=== PATIENT | female | born 1945 | race Caucasian/White ===

== ENCOUNTER 2017-04-20 14:13 | Outpatient (CLI) | payer MEDICARE, OTHER ==
[2017-04-20 16:33] LABS: #Eosinphils 0.2 thou/uL (0.0-0.7); #Lymphocytes 1.6 thou/uL (1.20-3.40); #Monocytes 0.6 thou/uL (0.11-0.59); #Neutrophils 4.7 thou/uL (1.40-6.50); %Basophils 0.2 % (0.0-1.0); %Eosinophils 3.3 % (0.0-10.0); %Lymphocytes 22.4 % (21.0-51.0); %Monocytes 8.7 % (0.0-10.0); Hematocrit 34.7 % (36.0-47.0); Mean Platelet Volume 7.4 fL (7.4-10.4); White Blood Cell (WBC) Count 7.2 thou/uL (4.8-10.8)
[2017-04-20 16:58] LABS: ALT (SGPT) 17 U/L (8-55); AST (SGOT) 21 U/L (5-34); Alkaline Phosphatase 60 U/L (40-150); Anion Gap 14 mmol/L (10-20); BUN (Urea Nitrogen) 23 mg/dL (9.8-20.1); Bilirubin, Total 0.3 mg/dL (0.2-1.2); Calc. Creatinine Clearance 0 mL/min (70-130); Calcium 9.7 mg/dL (7.8-10.44); Carbon Dioxide 27 mmol/L (23-31); Chloride 99 mmol/L (98-107); Estimated GFR-MDRD 48; Globulin 3.4 g/dL (2.4-3.5); Protein, Total 7.8 g/dL (6.0-8.3)
== END 2017-04-20 14:14 | disposition home or self-care (01) ==
LOC: LABBT 14:13
PROVIDERS: ATTEND Surgery
DX: Z01.818 Encounter for other preprocedural examination (principal); C51.9 Malignant neoplasm of vulva, unspecified
CPT/HCPCS: 80053; 85025; 93005; 93010

== ENCOUNTER 2017-04-21 05:43 | Day surgery (SDC) | payer MEDICARE, OTHER ==
[2017-04-20 14:56] VITALS: BMI 26.4
[2017-04-21] MEDS ORDERED: Lidocaine 2% w/Epinephrine 1:200K 20 ML VIAL ONE (06:42)
[2017-04-21] MEDS ORDERED: Bupivacaine 0.25% HCL 30 ML VIAL ONE (06:43)
[2017-04-21] MEDS ORDERED: Bupivacaine PF 0.5% 30 ML VIAL ONE (06:43)
[2017-04-21] MEDS ORDERED: Fentanyl 100 MCG/2 ML VIAL ONE (07:22)
[2017-04-21] MEDS ORDERED: Midazolam HCl 2 mg/2 ml Vial ONE (07:22)
[2017-04-21] MEDS ORDERED: CEFAZOLIN/Water 2 GM/20 ML SYRINGE ONE (07:22)
[2017-04-21] MEDS ORDERED: Bicitra 30 ML UDCUP ONE (07:22)
[2017-04-21] MEDS ORDERED: Dexamethasone 20 MG/5 ML VIAL ONE (07:41)
[2017-04-21] MEDS ORDERED: Lidocaine 1% PF 5 ML VIAL ONE (07:41)
[2017-04-21] MEDS ORDERED: Glycopyrrolate 0.2 MG/ML 5 ML SYRINGE ONE (07:41)
[2017-04-21] MEDS ORDERED: ePHEDrine/0.9% NaCl/PF SYRINGE 50 mg/10 ml ONE (07:41)
[2017-04-21] MEDS ORDERED: Propofol 200 MG/20 ML VIAL ONE (07:41)
[2017-04-21] MEDS ORDERED: Ondansetron HCl/PF 4 MG/2 ML Vial ONE (07:41)
[2017-04-21] MEDS ORDERED: Morphine 2 MG/ML SYRINGE ONE (09:03)
--- NOTE | 2017-04-21 09:03 | OP ---
PREOPERATIVE DIAGNOSIS: Vulvar cancer. SURGEON: Toby Kelly M.D. PROCEDURE PERFORMED: MediPort placement. INDICATIONS: A 71-year-old female who recently was diagnosed with vulvar cancer, will require chemo therapy and needed MediPort for that. FINDINGS: Placement was in the left subclavian vein with good backflow of venous blood. DESCRIPTION OF THE PROCEDURE: After informed consent was obtained, patient was taken to the operati ng room and given general mask anesthesia, placed in the supine position. Her chest and neck were p repped and draped in the usual fashion. Local anesthesia infiltrated subcutaneously and deep with 0 .5% Marcaine. The patient was then placed in Trendelenburg position. An introducer needle was inse rted, left subclavian with good backflow of venous blood. J-wire inserted easily. Fluoroscopy was then performed to document placement in the superior vena cava. The skin and subcutaneous anestheti zed with 0.5% Marcaine. A transverse chest wall incision was performed. Subcu divided sharply. A pocket was created sharply with electrocautery on the pectoralis fascia. Then utilizing the tunneli ng device, the catheter was placed in the subcutaneous tissue between the two incisions. The cathet er was then secured to the MediPort and the system was flushed with heparinized saline. The MediPor t was secured in its pocket with interrupted 2-0 Prolene suture. The catheter cut to size. The pee l-away introducer inserted over the wire. The wire removed. The catheter inserted through the peel -away introducer and the peel-away introducer removed. Fluoroscopy again performed showed good plac ement in superior vena cava. The subcu was closed with interrupted 3-0 Vicryl. The system was acce ssed with the Elliott needle, aspirated. Good backflow of venous blood, flushed with heparinized sali ne. The skin closed with a running subcuticular 4-0 Rapide. Dermabond applied. The patient tolera anjel the procedure well and transferred to recovery in good condition. Sponge and needle count verif ied correct x2.
[2017-04-21] MEDS ORDERED: HYDROmorphone 2 MG/ML VIAL SLOW IVP PRN (09:28)
[2017-04-21] MEDS ORDERED: Morphine Sulfate 2 MG/ML SYRINGE SLOW IVP PRN (09:28)
[2017-04-21] MEDS ORDERED: Non-Formulary Medication 1 EACH PO PRN (09:28)
--- NOTE | 2017-04-21 09:47 | RAD ---
PORTABLE CHEST ONE VIEW: Date: 04-21-17 Time: 8:41 a.m. History: Mediport placement. FINDINGS/IMPRESSION: The heart size is normal. There is a left subclavian port-a-cath tip in the direction of the SVC. No pneumothorax is identified. There is subsegmental atelectasis with mild infiltrate at the left lung base. POS: [facility]
== END 2017-04-21 10:38 | disposition home or self-care (01) ==
LOC: SDC 05:43
PROVIDERS: ATTEND Surgery
PROC: 05H633Z Insertion of Infusion Device into Left Subclavian Vein, Percutaneous Approach (ICD-10-PCS; principal; 2017-04-21)
DX: C51.9 Malignant neoplasm of vulva, unspecified (principal); E11.9 Type 2 diabetes mellitus without complications; Z88.1 Allergy status to other antibiotic agents; Z88.8 Allergy status to other drugs, medicaments and biological substances; Z79.84 Long term (current) use of oral hypoglycemic drugs; Z79.899 Other long term (current) drug therapy; Z90.10 Acquired absence of unspecified breast and nipple; Z90.710 Acquired absence of both cervix and uterus; Z90.49 Acquired absence of other specified parts of digestive tract; Z98.890 Other specified postprocedural states; Z98.891 History of uterine scar from previous surgery; Z80.9 Family history of malignant neoplasm, unspecified
CPT/HCPCS: 36561; 71010; 96374; C1788; J1100; J1642; J2001; J2250; J2270; J2405; J2704; J3010; S0020

== ENCOUNTER 2017-06-06 13:33 | Outpatient (CLI) | payer MEDICARE, OTHER ==
[2017-06-06 14:18] LABS: #Eosinphils 0.3 thou/uL (0.0-0.7); #Lymphocytes 0.9 thou/uL (1.20-3.40); #Monocytes 0.4 thou/uL (0.11-0.59); #Neutrophils 3.2 thou/uL (1.40-6.50); %Basophils 0.4 % (0.0-1.0); %Eosinophils 5.9 % (0.0-10.0); %Lymphocytes 17.9 % (21.0-51.0); %Monocytes 8.9 % (0.0-10.0); Hematocrit 33.3 % (36.0-47.0); Red Blood Cell (RBC) Count 3.79 mill/uL (4.20-5.40); White Blood Cell (WBC) Count 4.8 thou/uL (4.8-10.8)
[2017-06-06 14:38] LABS: ALT (SGPT) 20 U/L (8-55); AST (SGOT) 23 U/L (5-34); Alkaline Phosphatase 62 U/L (40-150); Anion Gap 14 mmol/L (10-20); BUN (Urea Nitrogen) 25 mg/dL (9.8-20.1); Bilirubin, Total 0.3 mg/dL (0.2-1.2); Calc. Creatinine Clearance 0 mL/min (70-130); Calcium 9.9 mg/dL (7.8-10.44); Carbon Dioxide 26 mmol/L (23-31); Chloride 102 mmol/L (98-107); Estimated GFR-MDRD 43; Globulin 3.2 g/dL (2.4-3.5); Protein, Total 7.6 g/dL (6.0-8.3)
== END 2017-06-06 13:34 | disposition home or self-care (01) ==
LOC: LABBT 13:33
PROVIDERS: ATTEND Surgery
DX: Z01.818 Encounter for other preprocedural examination (principal); C51.9 Malignant neoplasm of vulva, unspecified; Z88.1 Allergy status to other antibiotic agents; Z88.8 Allergy status to other drugs, medicaments and biological substances
CPT/HCPCS: 80053; 85025; 93005; 93010

== ENCOUNTER 2017-06-13 06:42 | Day surgery (SDC) | payer MEDICARE, OTHER ==
[2017-06-06 14:03] VITALS: BMI 26.6
--- NOTE | 2017-06-13 07:13 | HP ---
CHIEF COMPLAINT: Completed chemo. HISTORY OF PRESENT ILLNESS: The patient is a 71-year-old female who had a MediPort placed to treat v ulvar cancer. She has completed chemotherapy. She is here for removal of MediPort. PAST MEDICAL HISTORY: Diabetes, hypertension, breast cancer, vulvar cancer. MEDICATIONS: Metformin, lovastatin, Toprol-XL, hydrochlorothiazide, omeprazole, cetirizine, vitamin D, gabapentin, hydrocodone. PAST SURGICAL HISTORY: section x3, hysterectomy, cholecystectomy, cataract surgery, skin ca ncer surgery, bilateral mastectomy, vulvar surgery. ALLERGIES: She has allergies to LISINOPRIL, BAYCOL and CIPROFLOXICIN. FAMILY HISTORY: Both parents are . SOCIAL HISTORY: No tobacco, no alcohol. PHYSICAL EXAMINATION: VITAL SIGNS: Height 5 foot 6, weight 165, body mass index 26.6, blood pressure 125/93, pulse 99. GENERAL: Well-developed, well-nourished female in no apparent distress. HEENT: Unremarkable. LUNGS: Clear. HEART: Regular rate and rhythm. She has a MediPort in the left upper chest. ABDOMEN: Soft, nontender, good bowel sounds, no palpable masses or hernias. EXTREMITIES: Good pulses. No pedal edema. ASSESSMENT: Completed chemo. PLAN: Removal of MediPort. CONSENT: I discussed the planned procedure as well as risk of bleeding, infection. She understands and gives informed consent.
[2017-06-13] MEDS ORDERED: CEFAZOLIN/Water 2 GM/20 ML SYRINGE ONE (07:53)
[2017-06-13] MEDS ORDERED: Bupivacaine PF 0.5% 30 ML VIAL ONE (08:42)
[2017-06-13] MEDS ORDERED: Lidocaine 2% w/Epinephrine 1:200K 20 ML VIAL ONE (08:42)
[2017-06-13] MEDS ORDERED: Meperidine HCl/PF 25 MG/ML VIAL ONE (09:00)
--- NOTE | 2017-06-13 09:44 | OP ---
PREOPERATIVE DIAGNOSIS: Complete chemotherapy. SURGEON: Toby Kelly M.D. PROCEDURE PERFORMED: Removal of MediPort. INDICATIONS: A 71-year-old female who has completed chemotherapy for vulvar cancer here and for Medi Port removal. FINDINGS: Intact system. DESCRIPTION OF PROCEDURE: After informed consent was obtained, the patient was taken to the operatin g room and given total intravenous anesthesia, placed in the supine position. Chest was prepped and draped in the usual fashion. Local anesthesia infiltrated subcutaneously and deep. A transverse inc ision was performed through the old scar. Subcutaneous divided sharply. The sutures were removed. The MediPort removed as well as the catheter intact. Hemostasis achieved with electrocautery. Subcu taneous reapproximated with interrupted 3-0 Vicryl. Skin closed with a running subcuticular 4-0 Rapi carson. Dermabond applied. The patient tolerated the procedure well and transferred to recovery in good condition. Sponge and needle count verified correct x2.
[2017-06-13] MEDS ORDERED: Ondansetron HCl/PF 4 MG/2 ML Vial ONE (10:47)
[2017-06-13] MEDS ORDERED: Propofol 200 MG/20 ML VIAL ONE (10:47)
== END 2017-06-13 10:49 | disposition home or self-care (01) ==
LOC: SDC 06:42
PROVIDERS: ATTEND Surgery
PROC: 0JPT3WZ Removal of Totally Implantable Vascular Access Device from Trunk Subcutaneous Tissue and Fascia, Percutaneous Approach (ICD-10-PCS; principal; 2017-06-13)
DX: C51.9 Malignant neoplasm of vulva, unspecified (principal); Z90.49 Acquired absence of other specified parts of digestive tract; I10 Essential (primary) hypertension; E11.9 Type 2 diabetes mellitus without complications; Z88.8 Allergy status to other drugs, medicaments and biological substances; Z88.1 Allergy status to other antibiotic agents; Z79.84 Long term (current) use of oral hypoglycemic drugs; Z79.899 Other long term (current) drug therapy; Z90.13 Acquired absence of bilateral breasts and nipples; Z90.710 Acquired absence of both cervix and uterus; Z98.890 Other specified postprocedural states
CPT/HCPCS: J1642; J2175; J2405; J2704; S0020

== ENCOUNTER 2017-10-13 10:13 | Outpatient (CLI) | payer MEDICARE, OTHER ==
--- NOTE | 2017-10-13 15:01 | PET ---
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 COMPARISON: None. TECHNIQUE: IV injection F-18 Fluorodeoxyglucose (FDG) dose: 7.1 mCi PET and attenuation-correction CT performed from skull base to proximal thighs. FINDINGS: SUV (standard uptake value) numbers given are maximum SUV's: These are QCLR values. There is a single right inguinal lymph node with strong FDG avidity, SUV 13.0. At midline, at the junction between the anterior aspect of the anus and the posterior aspect of the p erineum, there is a focus of FDG uptake with SUV of 8.3. It is uncertain whether this represents cont iguous physiologic uptake from the contents of the colon and rectum, or whether this represents the p rimary malignancy stated in the history. There are no other regions of abnormal FDG avidity. This includes absence of FDG-avid iliac chain lym ph nodes. There is no FDG avidity in the abdomen, chest, or neck. IMPRESSION: 1. Evidence for solitary right inguinal metastatic lymph node. 2. Questionable finding at posterior perineum. See above comments. NAVDEEP Low POS: [facility]
== END 2017-10-13 10:14 | disposition home or self-care (01) ==
LOC: PET 10:13
PROVIDERS: ATTEND Radiology Radiation Oncology
DX: C51.2 Malignant neoplasm of clitoris (principal); C77.4 Secondary and unspecified malignant neoplasm of inguinal and lower limb lymph nodes
CPT/HCPCS: 78815; A9552

== ENCOUNTER 2018-03-30 08:22 | Outpatient (CLI) | payer MEDICARE, OTHER ==
--- NOTE | 2018-03-30 15:49 | PET ---
NUCLEAR MEDICINE FDG PET CT: (Positron Emission Tomography) DATE: 03/30/18 HISTORY: 72-year-old female with cancer of the vulva, with recurrence in the right inguinal region. C77.4 and C56.2. Status post external beam radiation therapy. Restaging. COMPARISON: 10/13/17 PET. TECHNIQUE: IV injection F-18 Fluorodeoxyglucose (FDG) dose: 10.8 mCi PET and attenuation-correction CT performed from skull base to proximal thighs. FINDINGS: SUV (standard uptake value) numbers given are maximum SUV's: Again noted is the small area of increased activity in the region of the perineum. This appears simil ar to that of the prior study. Because there is no mention of residual disease in this area clinicall y by the provided history, it is assumed that this represents intraluminal contents of the rectum ext ending into the anus, rather than a malignancy. The previously demonstrated hypermetabolic right inguinal lymph node is no longer present. There is f at stranding in that area representing either edema or scar tissue. There are currently no hypermetabolic lymph nodes in the pelvis, abdomen, chest, or neck. There are n o foci of abnormal FDG avidity within the thoracic cavity or pelvic cavity, or involving the skeleton . There is diffusely greater heterogeneous uptake throughout the entire liver now compared to the previ ous study. This is unlikely to be due to metastatic disease. 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 Sigmoid and descending colonic diverticulosis without acute diverticulitis. Cholecystectomy clips. No pleural effusion, large pulmonary mass, or consolida tion, and no pneumothorax. IMPRESSION: 1. Status post surgical resection of the malignant, metastatic right inguinal lymph node. 2. Currently no convincing evidence of malignant residual or metastatic disease. 3. Status post hysterectomy and cholecystectomy. NAVDEEP Low POS: [facility]
== END 2018-03-30 08:23 | disposition home or self-care (01) ==
LOC: PET 08:22
PROVIDERS: ATTEND Radiology Radiation Oncology
DX: Z08 Encounter for follow-up examination after completed treatment for malignant neoplasm (principal); Z85.44 Personal history of malignant neoplasm of other female genital organs; Z85.79 Personal history of other malignant neoplasms of lymphoid, hematopoietic and related tissues; Z92.3 Personal history of irradiation; Z90.710 Acquired absence of both cervix and uterus; Z90.49 Acquired absence of other specified parts of digestive tract; Z98.890 Other specified postprocedural states
CPT/HCPCS: 78815; A9552

== ENCOUNTER 2018-10-30 13:03 | Outpatient (CLI) | payer MEDICARE ==
--- NOTE | 2018-10-30 15:37 | CT ---
CT abdomen and pelvis noncontrast HISTORY: Abdominal pain. COMPARISON: 03/30/2018. FINDINGS: Minimal atelectasis at the lung bases. Each renal collecting system, ureter, and urinary bl adder are decompressed without stone evident. Lack of IV contrast limits evaluation for other abnormalities. Oral contrast was administered. No sarthak dence of bowel obstruction. Gallbladder surgically absent. Prominent circumferential wall thickening involving the cecum, most pronounced anteriorly. Apparent wall thickening measures up to 1 .8 cm. Abnormality extends over a length of 8.8 cm. Of note, this masslike appearance was not present on the PET scan from 03/30/2018. Diverticula arise from the distal colon without adjacent infl ammation. Degenerative changes lumbar spine. IMPRESSION: No CT evidence of urinary tract obstruction or calcification. Abnormal appearance of the cecum, with prominent mass like wall thickening. The appearance very much suggests neoplasm. The unusual part is that the abnormality was not present on scan from 03/30/2018. The rapid appearance is somewhat confusing. Please consider colonoscopy and potential biopsy. Mild diverticulosis. No evidence of diverticulitis.
[2018-10-30 15:49] LABS: #Eosinphils 0.1 thou/uL (0.0-0.7); #Lymphocytes 1.2 thou/uL (1.20-3.40); #Monocytes 0.6 thou/uL (0.11-0.59); #Neutrophils 5.1 thou/uL (1.40-6.50); %Basophils 0.2 % (0.0-1.0); %Eosinophils 1.7 % (0.0-10.0); %Lymphocytes 16.9 % (21.0-51.0); %Monocytes 8.1 % (0.0-10.0); %Neutrophils 73.1 % (42.0-75.0); Hemoglobin 12.8 g/dL (12.0-16.0); Mean Corpuscular HGB CONC 34.9 g/dL (32.0-36.0); Mean Corpuscular Hemoglobin 28.9 pg (27.0-31.0); Platelet Count 239 thou/uL (130-400); RBC Distribution Width 13.4 % (11.5-14.5); Red Blood Cell (RBC) Count 4.43 mill/uL (4.20-5.40)
[2018-10-30 16:12] LABS: ALT (SGPT) 30 U/L (8-55); AST (SGOT) 20 U/L (5-34); Albumin 4.6 g/dL (3.4-4.8); Alkaline Phosphatase 83 U/L (40-150); Anion Gap 18 mmol/L (10-20); BUN (Urea Nitrogen) 19 mg/dL (9.8-20.1); Bilirubin, Total 0.5 mg/dL (0.2-1.2); Calc. Creatinine Clearance 0 mL/min (70-130); Calcium 9.1 mg/dL (7.8-10.44); Carbon Dioxide 22 mmol/L (23-31); Chloride 92 mmol/L (98-107); Estimated GFR-MDRD 55; Globulin 3.1 g/dL (2.4-3.5); Glucose 106 mg/dL (83-110); Lipase 17 U/L (8-78); Potassium 3.5 mmol/L (3.5-5.1); Protein, Total 7.7 g/dL (6.0-8.3); Sodium 128 mmol/L (136-145)
[2018-10-30] MEDS ORDERED: Iopamidol 370 76% 50 ML VIAL FS ONE (17:09)
== END 2018-10-30 13:04 | disposition home or self-care (01) ==
LOC: CT 13:03
PROVIDERS: ATTEND Internal Medicine Geriatric Medicine
DX: R10.10 Upper abdominal pain, unspecified (principal); I10 Essential (primary) hypertension; E11.65 Type 2 diabetes mellitus with hyperglycemia; R19.7 Diarrhea, unspecified; K29.00 Acute gastritis without bleeding; K57.30 Diverticulosis of large intestine without perforation or abscess without bleeding
CPT/HCPCS: 74176; 80053; 80061; 82150; 83036; 83690; 85025; Q9967

== ENCOUNTER 2019-03-19 16:23 | Emergency (ER) | payer MEDICARE ==
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
== END 2019-03-19 18:45 | disposition home or self-care (01) ==
LOC: ERS 16:23
DX: S29.012A Strain of muscle and tendon of back wall of thorax, initial encounter (principal); S20.212A Contusion of left front wall of thorax, initial encounter; E11.9 Type 2 diabetes mellitus without complications; I10 Essential (primary) hypertension; E78.5 Hyperlipidemia, unspecified; Z85.3 Personal history of malignant neoplasm of breast; Z85.44 Personal history of malignant neoplasm of other female genital organs; V89.2XXA Person injured in unspecified motor-vehicle accident, traffic, initial encounter
CPT/HCPCS: 72072

== ENCOUNTER 2019-07-05 10:44 | Outpatient (CLI) | payer MEDICARE ==
--- NOTE | 2019-07-05 11:33 | RAD ---
STANDING FRONTAL AND LATERAL KNEE RADIOGRAPHS BILATERALLY: DATE: 07/05/2019. PROVIDED CLINICAL HISTORY: Pain. FINDINGS: There is no evidence for fracture or other acute osseous abnormality. Alignment appears anatomic. J oint spaces appear preserved. No evidence for significant knee joint capsular distention. IMPRESSION: No evidence for an acute osseous abnormality or significant arthropathy. POS: [facility]
[2019-07-05 14:03] LABS: #Eosinphils 0.2 thou/uL (0.0-0.7); #Lymphocytes 1.1 thou/uL (1.20-3.40); #Monocytes 0.4 thou/uL (0.11-0.59); %Basophils 0.8 % (0.0-1.0); %Eosinophils 4.5 % (0.0-10.0); %Lymphocytes 23.9 % (21.0-51.0); %Monocytes 8.5 % (0.0-10.0); %Neutrophils 62.4 % (42.0-75.0); Hemoglobin 11.2 g/dL (12.0-16.0); Mean Corpuscular Volume 85.4 fL (78.0-98.0); Platelet Count 181 thou/uL (130-400); RBC Distribution Width 13.5 % (11.5-14.5); Red Blood Cell (RBC) Count 3.85 mill/uL (4.20-5.40); White Blood Cell (WBC) Count 4.8 thou/uL (4.8-10.8)
[2019-07-05 14:33] LABS: Hemoglobin A1c 6.3 % (4.0-6.0)
[2019-07-05 14:49] LABS: ALT (SGPT) 14 U/L (8-55); AST (SGOT) 21 U/L (5-34); Albumin 4.4 g/dL (3.4-4.8); Alkaline Phosphatase 60 U/L (40-110); Anion Gap 18 mmol/L (10-20); BUN (Urea Nitrogen) 22 mg/dL (9.8-20.1); Bilirubin, Total 0.3 mg/dL (0.2-1.2); Calc. Creatinine Clearance 0 mL/min (70-130); Carbon Dioxide 19 mmol/L (23-31); Chloride 108 mmol/L (98-107); Estimated GFR-MDRD 52; Globulin 2.6 g/dL (2.4-3.5); Glucose 135 mg/dL (83-110); Sodium 141 mmol/L (136-145)
== END 2019-07-05 10:45 | disposition home or self-care (01) ==
LOC: SCSRAD 10:44
PROVIDERS: ATTEND Family Medicine
DX: M25.561 Pain in right knee (principal); E11.65 Type 2 diabetes mellitus with hyperglycemia
CPT/HCPCS: 73565; 80053; 83036; 85025

== ENCOUNTER 2020-03-13 09:54 | Outpatient (CLI) | payer MEDICARE ==
--- NOTE | 2020-03-13 10:30 | RAD ---
Exam: Left toes 3 views HISTORY: Pain. FINDINGS: Moderate degenerative change in the first metatarsophalangeal joint space. Mild degenerativ e and the first interphalangeal joint space. No fracture, cortical irregularity or periosteal reaction. IMPRESSION: Moderate degenerative changes and mild degenerative changes involving the first digit as described above.
== END 2020-03-13 09:55 | disposition home or self-care (01) ==
LOC: BICRAD 09:54
PROVIDERS: ATTEND Family Medicine
DX: M79.675 Pain in left toe(s) (principal); M19.072 Primary osteoarthritis, left ankle and foot
CPT/HCPCS: 36415; 80053; 82306; 83036; 84550; 85025

== ENCOUNTER 2020-10-13 08:49 | Outpatient (CLI) | payer MEDICARE | END 2020-10-13 08:50 | disposition home or self-care (01) | LOC: BICRAD 08:49 | PROVIDERS: ATTEND Family Medicine | DX: M79.89 Other specified soft tissue disorders (principal) ==

== ENCOUNTER 2020-10-23 09:03 | Outpatient (CLI) | payer MEDICARE ==
[2020-10-23 12:44] LABS: #Eosinphils 0.2 10x3/uL (0.0-0.5); #Monocytes 0.4 10x3/uL (0.0-1.1); #Neutrophils 3.2 10x3/uL (1.5-8.4); %Basophils 0.6 % (0.0-2.0); %Eosinophils 4.7 % (0.0-6.0); %Lymphocytes 21.4 % (18.0-47.0); %Monocytes 7.6 % (0.0-10.0); %Neutrophils 64.5 % (40.0-75.0); Hemoglobin 11.5 g/dL (12.0-15.5); Mean Corpuscular HGB CONC 32.7 g/dL (32.0-36.0); Mean Corpuscular Volume 85.9 fl (81.6-98.3); Mean Platelet Volume 10.1 fl (7.4-10.4); Platelet Count 203 10x3/uL (150-450); RBC Distribution Width 14.3 % (11.5-14.5); White Blood Cell (WBC) Count 4.9 10x3/uL (3.5-10.5)
[2020-10-23 15:33] LABS: ALT (SGPT) 16 U/L (8-55); AST (SGOT) 22 U/L (5-34); Albumin 4.3 g/dL (3.4-4.8); Alkaline Phosphatase 51 U/L (40-110); Anion Gap 19 mmol/L (10-20); BUN (Urea Nitrogen) 25 mg/dL (9.8-20.1); Bilirubin, Total 0.3 mg/dL (0.2-1.2); Calc. Creatinine Clearance 0 mL/min (70-130); Calcium 9.6 mg/dL (7.8-10.44); Carbon Dioxide 23 mmol/L (23-31); Chloride 98 mmol/L (98-107); Globulin 3.2 g/dL (2.4-3.5); Glucose 214 mg/dL (83-110); Potassium 3.8 mmol/L (3.5-5.1); Protein, Total 7.5 g/dL (5.8-8.1); Sodium 136 mmol/L (136-145)
[2020-10-24 01:47] LABS: SARS-CoV-2 PCR by NAA Not Detected (NotDetected)
== END 2020-10-23 09:04 | disposition home or self-care (01) ==
LOC: LABBT 09:03
PROVIDERS: ATTEND Surgery
DX: Z01.818 Encounter for other preprocedural examination (principal); Z20.822 Contact with and (suspected) exposure to COVID-19; C51.9 Malignant neoplasm of vulva, unspecified
CPT/HCPCS: 80053; 85025; 93005; U0003; U0005; 87635; 93010

== ENCOUNTER 2020-10-27 08:17 | Day surgery (SDC) | payer MEDICARE ==
[2020-10-27] MEDS ORDERED: Bupivacaine 0.25% HCL 30 ML VIAL ONE (09:11)
[2020-10-27] MEDS ORDERED: Lidocaine 1% w/Epinephrine 1:100K 20 ML VIAL ONE (09:11)
[2020-10-27] MEDS ORDERED: Fentanyl 100 MCG/2 ML VIAL ONE (09:25)
[2020-10-27] MEDS ORDERED: Lidocaine 1% PF 5 ML VIAL ONE (09:42)
[2020-10-27] MEDS ORDERED: Ondansetron PF 4 MG/2 ML Vial ONE (09:42)
[2020-10-27] MEDS ORDERED: PROPOFOL 200 MG/20 ML VIAL ONE (09:42)
[2020-10-27] MEDS ORDERED: HYDROcodone/Acetaminophen 5/325 mg Tablet ONE (11:41)
== END 2020-10-27 11:50 | disposition home or self-care (01) ==
LOC: SDC 08:17
PROVIDERS: ATTEND Surgery
PROC: 0JH60WZ Insertion of Totally Implantable Vascular Access Device into Chest Subcutaneous Tissue and Fascia, Open Approach (ICD-10-PCS; principal; 2020-10-27)
PROC: 02HV33Z Insertion of Infusion Device into Superior Vena Cava, Percutaneous Approach (ICD-10-PCS; 2020-10-27)
DX: C51.9 Malignant neoplasm of vulva, unspecified (principal); E11.9 Type 2 diabetes mellitus without complications; I10 Essential (primary) hypertension; E78.5 Hyperlipidemia, unspecified; Z85.3 Personal history of malignant neoplasm of breast; Z79.84 Long term (current) use of oral hypoglycemic drugs; Z79.899 Other long term (current) drug therapy; Z88.1 Allergy status to other antibiotic agents; Z88.8 Allergy status to other drugs, medicaments and biological substances
CPT/HCPCS: 71045; C1788; J0690; J1642; J2405; J2704; J3010; S0020

== ENCOUNTER 2020-12-18 10:33 | Outpatient (CLI) | payer MEDICARE | END 2020-12-18 10:34 | disposition home or self-care (01) | LOC: PET 10:33 | PROVIDERS: ATTEND Internal Medicine Hematology & Oncology | DX: C51.8 Malignant neoplasm of overlapping sites of vulva (principal); R91.1 Solitary pulmonary nodule | CPT/HCPCS: 78815; A9552 ==

== ENCOUNTER 2021-04-11 01:05 | Emergency (ER) | payer MEDICARE ==
[2021-04-11 02:14] LABS: #Eosinphils 0.1 thou/uL (0.0-0.7); #Lymphocytes 0.9 thou/uL (1.20-3.40); #Monocytes 0.5 thou/uL (0.11-0.59); #Neutrophils 3.9 thou/uL (1.40-6.50); %Basophils 0.4 % (0.0-1.0); %Lymphocytes 15.8 % (21.0-51.0); %Monocytes 9.9 % (0.0-10.0); %Neutrophils 71.9 % (42.0-75.0); Mean Corpuscular HGB CONC 35.1 g/dL (32.0-36.0); Mean Corpuscular Hemoglobin 31.1 pg (27.0-31.0); Mean Corpuscular Volume 88.7 fL (78.0-98.0); Mean Platelet Volume 6.5 fL (7.4-10.4); Platelet Count 172 thou/uL (130-400); RBC Distribution Width 15.1 % (11.5-14.5); Red Blood Cell (RBC) Count 3.54 mill/uL (4.20-5.40); White Blood Cell (WBC) Count 5.4 thou/uL (4.8-10.8)
[2021-04-11 02:34] LABS: ALT (SGPT) 9 U/L (8-55); AST (SGOT) 17 U/L (5-34); Albumin 3.7 g/dL (3.4-4.8); Alkaline Phosphatase 52 U/L (40-110); Anion Gap 18 mmol/L (10-20); BUN (Urea Nitrogen) 25 mg/dL (9.8-20.1); Bilirubin, Total 0.4 mg/dL (0.2-1.2); Calc. Creatinine Clearance 0 mL/min (70-130); Calcium 9.3 mg/dL (7.8-10.44); Carbon Dioxide 26 mmol/L (23-31); Chloride 92 mmol/L (98-107); Globulin 2.9 g/dL (2.4-3.5); Glucose 185 mg/dL (83-110); Protein, Total 6.6 g/dL (5.8-8.1); Sodium 133 mmol/L (136-145)
[2021-04-11 02:49] LABS: Potassium 2.7 mmol/L (3.5-5.1)
[2021-04-11] MEDS ORDERED: Ondansetron PF 4 MG/2 ML Vial ONE (03:21)
[2021-04-11] MEDS ORDERED: Morphine 4 MG/ML VIAL ONE (03:21)
[2021-04-11] MEDS ORDERED: Potassium Chloride 20 MEQ TAB ONE (04:52)
[2021-04-11 05:38] LABS: Bacteria/HPF None Seen HPF (None Seen); Bilirubin Negative (Negative); Blood, Urine Negative (Negative); Clarity Clear (Clear); Glucose, Urine (Dipstick) Normal (Negative); Ketone, Urine Negative (Negative); Leukocyte 25 Leu/uL (Negative); Nitrite Negative (Negative); Protein, Urine (Dipstick) Negative (Neg-Trace); RBC/HPF 0-3 HPF (0-3); Squamous Epithelial None Seen HPF (0-3); Urobilinogen Normal mg/dL (Less than 2); WBC/HPF 0-3 HPF (0-3); pH, Urine 5.5 (5.0-9.0)
[2021-04-11] MEDS ORDERED: Iopamidol-370 76% 500 ML 1 ML ONE (09:52)
== END 2021-04-11 07:15 | disposition home or self-care (01) ==
LOC: ERS 01:05
DX: R10.30 Lower abdominal pain, unspecified (principal); E86.0 Dehydration; E87.6 Hypokalemia; Z85.3 Personal history of malignant neoplasm of breast; E11.9 Type 2 diabetes mellitus without complications; I10 Essential (primary) hypertension; E78.5 Hyperlipidemia, unspecified
CPT/HCPCS: 36415; 74177; 80053; 81003; 81015; 83690; 85025; 96374; 96375; J2270; J2405; Q9967

== ENCOUNTER 2021-11-25 20:57 | Inpatient (IN) | payer MEDICARE ==
[2021-11-25] MEDS ORDERED: Ondansetron PF 4 MG/2 ML Vial IVP PRN (23:17)
[2021-11-25] MEDS ORDERED: Dextrose 5% in Water 1,000 ML IV PRN (23:23)
[2021-11-25] MEDS ORDERED: Dextrose 50% Abboject 50 ML SYRINGE SLOW IVP PRN (23:23)
[2021-11-25] MEDS ORDERED: Dextrose 5 % And 0.9 % NaCl 1,000 ML IV SCH (23:30)
[2021-11-25 23:46] VITALS: BMI 21.3
[2021-11-26] MEDS: Acetaminophen 325 MG TAB PO PRN ×2 (00:11→13:19)
[2021-11-26 00:29] LABS: Anion Gap 17 mmol/L (10-20); BUN (Urea Nitrogen) 15 mg/dL (9.8-20.1); Calc. Creatinine Clearance 62 mL/min (70-130); Calcium 9.5 mg/dL (7.8-10.44); Carbon Dioxide 20 mmol/L (23-31); Chloride 92 mmol/L (98-107); Potassium 4.8 mmol/L (3.5-5.1); Sodium 124 mmol/L (136-145)
[2021-11-26 00:41] LABS: Glucose 55 mg/dL (83-110)
[2021-11-26 04:49] LABS: #Eosinphils 0.2 thou/uL (0.0-0.7); #Lymphocytes 1.3 thou/uL (1.20-3.40); #Monocytes 0.8 thou/uL (0.11-0.59); #Neutrophils 7.6 thou/uL (1.40-6.50); %Basophils 0.2 % (0.0-1.0); %Eosinophils 1.7 % (0.0-10.0); %Lymphocytes 13.4 % (21.0-51.0); %Monocytes 8.1 % (0.0-10.0); %Neutrophils 76.6 % (42.0-75.0); Hemoglobin 8.9 g/dL (12.0-16.0); Mean Corpuscular HGB CONC 31.3 g/dL (32.0-36.0); Mean Corpuscular Volume 89.3 fL (78.0-98.0); Mean Platelet Volume 5.8 fL (7.4-10.4); Platelet Count 337 thou/uL (130-400); RBC Distribution Width 15.8 % (11.5-14.5); Red Blood Cell (RBC) Count 3.18 mill/uL (4.20-5.40); White Blood Cell (WBC) Count 9.9 thou/uL (4.8-10.8)
[2021-11-26 05:10] LABS: Anion Gap 14 mmol/L (10-20); BUN (Urea Nitrogen) 14 mg/dL (9.8-20.1); Calc. Creatinine Clearance 67 mL/min (70-130); Calcium 8.9 mg/dL (7.8-10.44); Carbon Dioxide 19 mmol/L (23-31); Chloride 94 mmol/L (98-107); Glucose 60 mg/dL (83-110); Potassium 4.3 mmol/L (3.5-5.1); Sodium 123 mmol/L (136-145)
[2021-11-26 05:27] LABS: Free T4 (Free Thyroxine) 0.79 ng/dL (0.70-1.48)
[2021-11-26] MEDS ORDERED: Gabapentin 300 MG CAP PO SCH (09:00)
[2021-11-26] MEDS ORDERED: Nystatin 100,000 Units/mL UDCUP SSW SCH (09:00)
[2021-11-26] MEDS: Cefepime 1 GM in Sodium Chloride 0.9% 100 ML IVPB SCH ×2 (09:10→20:53)
[2021-11-26] MEDS: DULoxetine 60 MG CAP PO SCH (09:11)
[2021-11-26] MEDS: Nystatin 500,000 UNITS/5 ML UDCUP SSW SCH ×4 (09:11→20:53)
[2021-11-26] MEDS: Sodium Chloride 1 GM TAB PO SCH ×3 (09:11→20:53)
[2021-11-26] MEDS: Sodium Bicarbonate Tab 325 MG TAB PO SCH ×3 (09:11→20:54)
[2021-11-26] MEDS: Enoxaparin Sodium 40 MG/0.4 ML SYRINGE SC SCH (09:12)
[2021-11-26 10:47] LABS: Anion Gap 16 mmol/L (10-20); BUN (Urea Nitrogen) 15 mg/dL (9.8-20.1); Calc. Creatinine Clearance 65 mL/min (70-130); Calcium 9.2 mg/dL (7.8-10.44); Carbon Dioxide 21 mmol/L (23-31); Chloride 93 mmol/L (98-107); Potassium 4.8 mmol/L (3.5-5.1); Sodium 125 mmol/L (136-145)
[2021-11-26 10:50] LABS: Glucose 54 mg/dL (83-110)
[2021-11-26] MEDS: HYDROmorphone 2 MG TAB PO PRN ×3 (10:54→20:54)
[2021-11-26] MEDS ORDERED: Ibuprofen 200 MG TAB PO PRN (14:57)
[2021-11-26 15:29] LABS: Anion Gap 13 mmol/L (10-20); BUN (Urea Nitrogen) 14 mg/dL (9.8-20.1); Calc. Creatinine Clearance 70 mL/min (70-130); Calcium 8.7 mg/dL (7.8-10.44); Carbon Dioxide 25 mmol/L (23-31); Chloride 92 mmol/L (98-107); Glucose 62 mg/dL (83-110); Potassium 4.5 mmol/L (3.5-5.1); Sodium 125 mmol/L (136-145)
[2021-11-26] MEDS: Gabapentin 300 MG CAP PO SCH ×2 (16:08→20:53)
[2021-11-26] MEDS ORDERED: Ketorolac Tromethamine 30 MG/ML VIAL IVP PRN (16:12)
[2021-11-26 20:18] LABS: Anion Gap 12 mmol/L (10-20); BUN (Urea Nitrogen) 16 mg/dL (9.8-20.1); Calc. Creatinine Clearance 69 mL/min (70-130); Calcium 8.7 mg/dL (7.8-10.44); Carbon Dioxide 24 mmol/L (23-31); Chloride 93 mmol/L (98-107); Glucose 92 mg/dL (83-110); Potassium 4.6 mmol/L (3.5-5.1); Sodium 124 mmol/L (136-145)
[2021-11-26] MEDS: Atorvastatin Calcium 10 MG TAB PO SCH (20:54)
[2021-11-27 06:24] LABS: #Eosinphils 0.2 thou/uL (0.0-0.7); #Lymphocytes 1.1 thou/uL (1.20-3.40); #Monocytes 0.8 thou/uL (0.11-0.59); #Neutrophils 7.4 thou/uL (1.40-6.50); %Basophils 0.1 % (0.0-1.0); %Eosinophils 2.6 % (0.0-10.0); %Lymphocytes 11.2 % (21.0-51.0); %Neutrophils 78.1 % (42.0-75.0); Hemoglobin 8.2 g/dL (12.0-16.0); Mean Corpuscular HGB CONC 31.5 g/dL (32.0-36.0); Mean Corpuscular Volume 88.8 fL (78.0-98.0); Platelet Count 322 thou/uL (130-400); Red Blood Cell (RBC) Count 2.91 mill/uL (4.20-5.40); White Blood Cell (WBC) Count 9.5 thou/uL (4.8-10.8)
[2021-11-27 06:44] LABS: Anion Gap 12 mmol/L (10-20); BUN (Urea Nitrogen) 13 mg/dL (9.8-20.1); Calc. Creatinine Clearance 72 mL/min (70-130); Calcium 9.1 mg/dL (7.8-10.44); Carbon Dioxide 23 mmol/L (23-31); Chloride 95 mmol/L (98-107); Glucose 94 mg/dL (83-110); Potassium 4.4 mmol/L (3.5-5.1); Sodium 126 mmol/L (136-145)
[2021-11-27] MEDS: Enoxaparin Sodium 40 MG/0.4 ML SYRINGE SC SCH (08:35)
[2021-11-27] MEDS: Sodium Chloride 1 GM TAB PO SCH ×3 (08:35→21:58)
[2021-11-27] MEDS: Cefepime 1 GM in Sodium Chloride 0.9% 100 ML IVPB SCH ×2 (08:36→21:58)
[2021-11-27] MEDS: Gabapentin 300 MG CAP PO SCH ×3 (08:36→21:58)
[2021-11-27] MEDS: Nystatin 500,000 UNITS/5 ML UDCUP SSW SCH ×4 (08:36→21:59)
[2021-11-27] MEDS: Sodium Bicarbonate Tab 325 MG TAB PO SCH ×3 (08:36→21:59)
[2021-11-27] MEDS: DULoxetine 60 MG CAP PO SCH (08:36)
[2021-11-27] MEDS: HYDROmorphone 2 MG TAB PO PRN ×3 (08:39→22:13)
[2021-11-27] MEDS ORDERED: B & O PR SCH (12:00)
[2021-11-27] MEDS ORDERED: Polyethylene Glycol 3350 17 GM Packet PO SCH (12:15)
[2021-11-27] MEDS ORDERED: Megestrol Acetate 800 MG/20 ML UDCUP PO SCH (13:30)
[2021-11-27 14:28] LABS: Anion Gap 15 mmol/L (10-20); BUN (Urea Nitrogen) 14 mg/dL (9.8-20.1); Calc. Creatinine Clearance 67 mL/min (70-130); Calcium 8.7 mg/dL (7.8-10.44); Carbon Dioxide 22 mmol/L (23-31); Chloride 94 mmol/L (98-107); Glucose 121 mg/dL (83-110); Potassium 4.8 mmol/L (3.5-5.1); Sodium 126 mmol/L (136-145)
[2021-11-27 20:24] LABS: Anion Gap 14 mmol/L (10-20); BUN (Urea Nitrogen) 15 mg/dL (9.8-20.1); Calc. Creatinine Clearance 59 mL/min (70-130); Calcium 8.5 mg/dL (7.8-10.44); Carbon Dioxide 21 mmol/L (23-31); Chloride 94 mmol/L (98-107); Glucose 201 mg/dL (83-110); Potassium 4.6 mmol/L (3.5-5.1); Sodium 124 mmol/L (136-145)
[2021-11-27] MEDS: Atorvastatin Calcium 10 MG TAB PO SCH (21:58)
[2021-11-27] MEDS ORDERED: Sodium Chloride 0.9% 1,000 ML IV SCH (22:45)
[2021-11-28 07:30] LABS: #Eosinphils 0.3 thou/uL (0.0-0.7); #Lymphocytes 1.2 thou/uL (1.20-3.40); #Monocytes 0.6 thou/uL (0.11-0.59); #Neutrophils 5.8 thou/uL (1.40-6.50); %Basophils 0.1 % (0.0-1.0); %Eosinophils 3.8 % (0.0-10.0); %Lymphocytes 14.9 % (21.0-51.0); %Monocytes 7.4 % (0.0-10.0); %Neutrophils 73.8 % (42.0-75.0); Hemoglobin 8.1 g/dL (12.0-16.0); Mean Corpuscular HGB CONC 30.6 g/dL (32.0-36.0); Mean Corpuscular Hemoglobin 27.4 pg (27.0-31.0); Mean Corpuscular Volume 89.5 fL (78.0-98.0); Platelet Count 299 thou/uL (130-400); Red Blood Cell (RBC) Count 2.96 mill/uL (4.20-5.40); White Blood Cell (WBC) Count 7.9 thou/uL (4.8-10.8)
[2021-11-28 07:50] LABS: Anion Gap 12 mmol/L (10-20); BUN (Urea Nitrogen) 12 mg/dL (9.8-20.1); Calc. Creatinine Clearance 72 mL/min (70-130); Calcium 8.8 mg/dL (7.8-10.44); Carbon Dioxide 24 mmol/L (23-31); Chloride 97 mmol/L (98-107); Glucose 105 mg/dL (83-110); Potassium 4.3 mmol/L (3.5-5.1); Sodium 129 mmol/L (136-145)
[2021-11-28] MEDS: Polyethylene Glycol 3350 17 GM Packet PO SCH (08:33)
[2021-11-28] MEDS: Nystatin 500,000 UNITS/5 ML UDCUP SSW SCH ×4 (08:33→20:27)
[2021-11-28] MEDS: Cefepime 1 GM in Sodium Chloride 0.9% 100 ML IVPB SCH (08:33)
[2021-11-28] MEDS: Sodium Bicarbonate Tab 325 MG TAB PO SCH ×3 (08:34→20:28)
[2021-11-28] MEDS: Sodium Chloride 1 GM TAB PO SCH ×3 (08:34→20:29)
[2021-11-28] MEDS: DULoxetine 60 MG CAP PO SCH (08:34)
[2021-11-28] MEDS: Enoxaparin Sodium 40 MG/0.4 ML SYRINGE SC SCH (08:34)
[2021-11-28] MEDS: Gabapentin 300 MG CAP PO SCH ×3 (08:34→20:28)
[2021-11-28] MEDS: HYDROmorphone 2 MG TAB PO PRN ×3 (08:43→20:27)
[2021-11-28] MEDS ORDERED: Megestrol Acetate 800 MG/20 ML UDCUP PO SCH (12:00)
[2021-11-28] MEDS: Midodrine HCl 5 MG TAB PO SCH ×3 (13:16→20:29)
[2021-11-28] MEDS: Atorvastatin Calcium 10 MG TAB PO SCH (20:29)
[2021-11-29] MEDS: HYDROmorphone 2 MG TAB PO PRN ×3 (04:18→12:30)
[2021-11-29 06:48] LABS: #Eosinphils 0.3 thou/uL (0.0-0.7); #Lymphocytes 1.2 thou/uL (1.20-3.40); #Monocytes 0.6 thou/uL (0.11-0.59); #Neutrophils 6.7 thou/uL (1.40-6.50); %Eosinophils 3.1 % (0.0-10.0); %Monocytes 6.8 % (0.0-10.0); Hemoglobin 7.7 g/dL (12.0-16.0); Mean Corpuscular HGB CONC 30.4 g/dL (32.0-36.0); Mean Corpuscular Volume 88.8 fL (78.0-98.0); Mean Platelet Volume 6.2 fL (7.4-10.4); Platelet Count 296 thou/uL (130-400); RBC Distribution Width 15.7 % (11.5-14.5); Red Blood Cell (RBC) Count 2.85 mill/uL (4.20-5.40); White Blood Cell (WBC) Count 8.9 thou/uL (4.8-10.8)
[2021-11-29 07:06] LABS: Anion Gap 11 mmol/L (10-20); BUN (Urea Nitrogen) 14 mg/dL (9.8-20.1); Calc. Creatinine Clearance 78 mL/min (70-130); Calcium 8.9 mg/dL (7.8-10.44); Carbon Dioxide 25 mmol/L (23-31); Chloride 99 mmol/L (98-107); Glucose 118 mg/dL (83-110); Potassium 4.3 mmol/L (3.5-5.1); Sodium 131 mmol/L (136-145)
[2021-11-29 07:42] VITALS: TEMP 98.1
[2021-11-29] MEDS ORDERED: Megestrol Acetate 800 MG/20 ML UDCUP PO SCH (09:00)
[2021-11-29] MEDS: Polyethylene Glycol 3350 17 GM Packet PO SCH (09:08)
[2021-11-29] MEDS: Sodium Bicarbonate Tab 325 MG TAB PO SCH (09:08)
[2021-11-29] MEDS: Enoxaparin Sodium 40 MG/0.4 ML SYRINGE SC SCH (09:08)
[2021-11-29] MEDS: Nystatin 500,000 UNITS/5 ML UDCUP SSW SCH (09:08)
[2021-11-29] MEDS: DULoxetine 60 MG CAP PO SCH (09:08)
[2021-11-29] MEDS: Midodrine HCl 5 MG TAB PO SCH (09:09)
[2021-11-29] MEDS: Gabapentin 300 MG CAP PO SCH (09:09)
[2021-11-29] MEDS: Sodium Chloride 1 GM TAB PO SCH (09:09)
[2021-11-29 12:26] VITALS: BP 93/58
== END 2021-11-29 13:30 | disposition home or self-care (01) | DRG 699 ==
LOC: T4-B 20:57
PROVIDERS: ADMIT Family Medicine; ATTEND Family Medicine
DX: T83.518A Infection and inflammatory reaction due to other urinary catheter, initial encounter (principal); E22.2 Syndrome of inappropriate secretion of antidiuretic hormone; N39.0 Urinary tract infection, site not specified; E87.2 Acidosis; C79.9 Secondary malignant neoplasm of unspecified site; Z51.5 Encounter for palliative care; Z66 Do not resuscitate; C51.9 Malignant neoplasm of vulva, unspecified; I10 Essential (primary) hypertension; E78.5 Hyperlipidemia, unspecified; D63.1 Anemia in chronic kidney disease; E11.649 Type 2 diabetes mellitus with hypoglycemia without coma; E78.00 Pure hypercholesterolemia, unspecified; K21.9 Gastro-esophageal reflux disease without esophagitis; Z79.84 Long term (current) use of oral hypoglycemic drugs; Z85.3 Personal history of malignant neoplasm of breast; Z88.8 Allergy status to other drugs, medicaments and biological substances; Z79.899 Other long term (current) drug therapy; Z90.49 Acquired absence of other specified parts of digestive tract; Z90.710 Acquired absence of both cervix and uterus
CPT/HCPCS: 36415; 36416; 80048; 83930; 83935; 84300; 84439; 84443; 84481; 85025; 87086; J0692; J1650; J3490; J7042; J7050